=== PATIENT | male | born 1945 | race Caucasian/White ===

== ENCOUNTER 2017-01-11 09:37 | Observation (INO) | payer MEDICARE ==
[2017-01-08 14:11] VITALS: BP 137/62
[~2017-01-11] VITALS: Ht 177.8 cm; Wt 104.9 kg
[~2017-01-11 09:37] MED LIST: ALLO300T PO; APIX5TAB PO; DRON400T PO; OLME1TAB40 PO
[2017-01-11] MEDS: SODIUM CHLORIDE 0.9% 1,000 ML IV SCH ×2 (09:55→16:31)
[2017-01-11] MEDS ORDERED: CEFAZOLIN PMX 1GM/50ML 50 ML IVPB ONE (10:00)
[2017-01-11] MEDS ORDERED: GABA300C10 PO (10:26)
[2017-01-11] MEDS ORDERED: CEFAZOLIN 1,000 MG ONE (10:37)
[2017-01-11] MEDS ORDERED: CEFAZOLIN PMX 1GM/50ML 50 ML ONE (10:37)
[2017-01-11] MEDS ORDERED: LIDOCAINE 2%, 20ML ONE (10:38)
[2017-01-11] MEDS ORDERED: MIDAZOLAM 1 MG/ML, 5ML ONE (10:38)
[2017-01-11] MEDS ORDERED: FENTANYL PF 100 MCG/2ML ONE (10:38)
[2017-01-11] MEDS ORDERED: ZOLPIDEM 5MG TABLET PO PRN (12:00)
[2017-01-11 13:08] VITALS: BP 115/76
[2017-01-11 14:20] VITALS: BP 107/65
[2017-01-11] MEDS: HYDROcodone/APAP 5/325 TABLET PO PRN ×2 (15:20→20:30)
[2017-01-11] MEDS ORDERED: CALC-534 PO (15:33)
[2017-01-11] MEDS ORDERED: MULT-658 PO (15:33)
[2017-01-11] MEDS ORDERED: DICL75TA2 PO (15:33)
[2017-01-11] MEDS ORDERED: CYAN50008 SL (15:33)
[2017-01-11] MEDS ORDERED: GLUC1CAP38 PO (15:33)
[2017-01-11] MEDS ORDERED: CINN500C2 PO (15:33)
[2017-01-11] MEDS ORDERED: ASCO500C2 PO (15:33)
[2017-01-11] MEDS ORDERED: BIOT300T2 PO (15:33)
[2017-01-11] MEDS ORDERED: CHOL100011 PO (15:33)
[2017-01-11] MEDS: CEFAZOLIN PMX 1GM/50ML 50 ML IVPB SCH (16:41)
[2017-01-11] MEDS: SODIUM CHLORIDE FLUSH 10ML SYR IVF SCH (20:30)
[2017-01-11] MEDS: GABAPENTIN 300 MG CAPSULE PO SCH (20:30)
[2017-01-11] MEDS: DRONEDARONE 400MG TABLET PO SCH (20:30)
[2017-01-11 21:30] VITALS: BP 116/78
[2017-01-12] MEDS: SODIUM CHLORIDE 0.9% 1,000 ML IV SCH ×2 (00:16→07:53)
[2017-01-12] MEDS: CEFAZOLIN PMX 1GM/50ML 50 ML IVPB SCH (00:59)
[2017-01-12 01:00] VITALS: BP 129/86
[2017-01-12 07:45] VITALS: BP 122/78
[2017-01-12] MEDS: DRONEDARONE 400MG TABLET PO SCH (07:52)
[2017-01-12] MEDS: GABAPENTIN 300 MG CAPSULE PO SCH (07:53)
[2017-01-12] MEDS: SODIUM CHLORIDE FLUSH 10ML SYR IVF SCH (07:53)
[2017-01-12] MEDS: HYDROcodone/APAP 5/325 TABLET PO PRN (07:53)
[2017-01-12] MEDS ORDERED: HYDR-3240 PO (08:33)
[2017-01-12] MEDS ORDERED: LOSARTAN 50MG TABLET PO SCH (09:00)
[2017-01-12] MEDS ORDERED: ALLOPURINOL 300 MG TABLET PO SCH (09:00)
[2017-01-12] MEDS ORDERED: HYDROCHLOROTHIAZIDE 12.5 MG CAPSULE PO SCH (09:00)
== END 2017-01-12 11:05 | disposition home or self-care (01) ==
LOC: CACL 09:37 → ORIP 12:00 → 5SO 12:36
PROVIDERS: ADMIT Internal Medicine Cardiovascular Disease; ATTEND Internal Medicine Cardiovascular Disease
DX: I49.5 Sick sinus syndrome (principal); I48.0 Paroxysmal atrial fibrillation; R00.1 Bradycardia, unspecified
CPT/HCPCS: 33208; 71010; 71020; 93005; 96365; 96375; 99156; 99157; C1779; C1785; C1892; G0378; J0690; J2250; J3010; J3490

== ENCOUNTER → 2017-01-15 | Outpatient (CLI) | payer MEDICARE ==
[~2017-01-15] MED LIST changes: +ASCO500C2 PO; +BIOT300T2 PO; +CALC-534 PO; +CHOL100011 PO; +CINN500C2 PO; +CYAN50008 SL; +DICL75TA2 PO; +GABA300C10 PO; +GLUC1CAP38 PO; +HYDR-3240 PO; +MULT-658 PO
== END | disposition home or self-care (01) ==
LOC: CVU 14:51
PROVIDERS: ATTEND Physician Assistant Medical
DX: M25.442 Effusion, left hand (principal); Z95.0 Presence of cardiac pacemaker
CPT/HCPCS: 93971

== ENCOUNTER → 2018-05-27 | Outpatient (CLI) | payer MEDICARE ==
[~2018-05-27] MED LIST changes: -BIOT300T2 PO; +BIOT300T3 PO; -DICL75TA2 PO; +DICL75TA3 PO
== END | disposition home or self-care (01) ==
LOC: CVU 10:34
PROVIDERS: ATTEND Internal Medicine Cardiovascular Disease
DX: I08.3 Combined rheumatic disorders of mitral, aortic and tricuspid valves (principal); I11.9 Hypertensive heart disease without heart failure; I48.0 Paroxysmal atrial fibrillation; Z95.0 Presence of cardiac pacemaker; Z85.46 Personal history of malignant neoplasm of prostate
CPT/HCPCS: 93306

== ENCOUNTER 2019-01-16 07:30 | Outpatient (CLI) | payer MEDICARE ==
[~2019-01-16 07:30] MED LIST changes: +B CO1TAB14 PO; +BIOT25005 PO; -BIOT300T3 PO; +BIOT300T5 PO; +CETI-158 PO; +CYAN25009 PO; +DIGO125T PO; +MELO15TA24 PO; +METO-93 PO; +REGADENOSON 0.4 MG/5 ML SYRINGE ONE; +SILD100T PO; +TADA5TAB2 PO
== END 2019-01-16 23:59 | disposition home or self-care (01) ==
LOC: CFH 07:30
PROVIDERS: ATTEND Physician Assistant Medical
DX: I48.0 Paroxysmal atrial fibrillation (principal); I10 Essential (primary) hypertension; R00.1 Bradycardia, unspecified; Z95.0 Presence of cardiac pacemaker
CPT/HCPCS: 78452; 93017; A9502; J2785